=== PATIENT | male | born 1990 | race Two or more races ===

== ENCOUNTER 2017-09-25 12:36 | Emergency (ER) | payer OTHER ==
[~2017-09-25] VITALS: Ht 165.1 cm; Wt 65.8 kg
[2017-09-25] MEDS ORDERED: ALPRAZolam 0.5 MG TAB PO ONE (14:00)
[2017-09-25 14:26] VITALS: BP 121/73
== END 2017-09-25 16:28 | disposition home or self-care (01) ==
LOC: ER 12:36 → EDAGE 12:36 → ER 16:28
DX: F41.0 Panic disorder [episodic paroxysmal anxiety] (principal); R29.0 Tetany